=== PATIENT | female | born 1960 | race Caucasian/White ===

== ENCOUNTER 2016-10-30 10:35 | Observation (INO) | payer BC, OTHER ==
[2016-10-30] MEDS ORDERED: ASPIRIN 81 MG TABLET, CHEWABLE PO ONE (10:44)
--- NOTE | 2016-10-30 10:44 | ER Document Report ---
ED Medical Screen (RME) - General Stated Complaint: CHEST PAIN Mode of Arrival: Ambulatory Information source: Patient Notes: pt c/o cp that woke her up around 2 am, pain has been off/on since. Pt reports pain radiates thru to her back. Pt denies n/v. Does report cough for past day with sob. - Related Data Allergies/Adverse Reactions: No Known Allergies Allergy (Verified 10/30/16 10:43) Past Medical History - Past Medical History Cardiac Medical History: Denies: Hx Coronary Artery Disease, Hx Heart Attack, Hx Hypertension Pulmonary Medical History: Denies: Hx Asthma, Hx Bronchitis, Hx COPD, Hx Pneumonia Neurological Medical History: Denies: Hx Cerebrovascular Accident, Hx Seizures Musculoskeltal Medical History: Denies Hx Arthritis Past Surgical History: Denies: Hx Hysterectomy - Immunizations Hx Diphtheria, Pertussis, Tetanus Vaccination: Yes Physical Exam - Cardiovascular Rhythm: Regular Heart sounds: S1 appreciated, S2 appreciated Murmur: No
--- NOTE | 2016-10-30 11:12 | ER Document Report ---
ED Cardiac - General Chief Complaint: Chest Pain Stated Complaint: CHEST PAIN Time seen by provider: 11:07 Mode of Arrival: Ambulatory Information source: Patient Notes: 56-year-old female presents to ED for chest pain that woke her up around 2 AM. She states this pain is been off and on since then. She states the last couple days she has had pain in her medical record neck shoulders and the pain went down to her lower bottom of her teeth yesterday and it has radiated down to her chest through to her back. She denies any history of high blood pressure cholesterol or coronary artery disease. She states that her father has had a stroke and her grandfather has had heart attacks. TRAVEL OUTSIDE OF THE [place] IN LAST 30 DAYS: No - HPI Patient complains to provider of: Chest pain, Shortness of breath Was the onset of pain: Sudden Is the pain a: New problem Chest pain location: Substernal - Radiates to back Quality of pain: Sharp Chest pain radiation location: Back Severity now: Mild Pain level currently: 1 Cardiac risk factors: + Family history. denies: Diabetes, Hypertension, Smoker , Hx CHF, Hx VA Positive cardiac history: No Associated symptoms: Back pain, Jaw pain, Neck pain, Other - Left shoulder pain Exacerbated by: Denies Relieved by: Nothing Similar symptoms previously: No Recently seen / treated by doctor: No - Related Data Allergies/Adverse Reactions: No Known Allergies Allergy (Verified 10/30/16 10:43) Home Medications: Current Home Medications Fluticasone Propionate [Flonase Nasal [place] 50 Mcg/[place] 16 gm] 2 sprays NASL Q12 10/30/16 [History] Past Medical History - General Information source: Patient - Social History Smoking Status: Never Smoker Cigarette use (# per day): No Chew tobacco use (# tins/day): No Smoking Education Provided: No Frequency of alcohol use: None Drug Abuse: None Occupation: controller Lives with: Family - Adult disabled daughter Family History: Arthritis, CAD, COPD, CVA, DM, Hyperlipidemia, Hypertension, Malignancy, Thyroid Disfunction Patient has suicidal ideation: No Patient has homicidal ideation: No - Past Medical History Cardiac Medical History: Reports: None Denies: Hx Coronary Artery Disease, Hx Hypercholesterolemia, Hx Hypertension Pulmonary Medical History: Reports: None Denies: Hx Asthma EENT Medical History: Denies: None, Eyes, Ears, Nose, Throat, Other Endocrine Medical History: Reports: None. Denies: Hx Diabetes Mellitus Type 1, Hx Diabetes Mellitus Type 2 Renal/ Medical History: Reports: None Malignancy Medical History: Reports: None GI Medical History: Reports: None Musculoskeltal Medical History: Reports None, Denies Hx Arthritis Skin Medical History: Reports None Psychiatric Medical History: Reports: None Traumatic Medical History: Reports: None Infectious Medical History: Reports: None Surgical Hx: Negative Past Surgical History: Reports: None - Immunizations Immunizations up to date: Yes Hx Diphtheria, Pertussis, Tetanus Vaccination: Yes Review of Systems - Review of Systems Constitutional: No symptoms reported EENT: Other - Jaw pain Cardiovascular: Chest pain Respiratory: No symptoms reported Gastrointestinal: No symptoms reported. denies: Nausea, Vomiting Genitourinary: No symptoms reported Female Genitourinary: No symptoms reported Musculoskeletal: Back pain, Neck pain Skin: No symptoms reported Hematologic/Lymphatic: No symptoms reported Neurological/Psychological: No symptoms reported -: Yes All other systems reviewed and negative Physical Exam - Vital signs Vitals: Temp Pulse Resp BP Pulse Ox 97.7 F 71 16 129/74 H 100 10/30/16 10:43 10/30/16 10:43 10/30/16 10:43 10/30/16 10:43 10/30/16 10:43 Interpretation: Normal - General General appearance: Appears well, Alert - HEENT Head: Normocephalic, Atraumatic Eyes: Normal Pupils: PERRL Sinus: Normal Nasal: Normal Mouth/Lips: Normal Mucous membranes: Normal Pharynx: Normal Neck: Normal - Respiratory Respiratory status: No respiratory distress Chest status: Nontender Breath sounds: Normal Chest palpation: Normal - Cardiovascular Rhythm: Regular Heart sounds: Normal auscultation Murmur: No Normal capillary refill: Yes - Abdominal Inspection: Normal Distension: No distension Bowel sounds: Normal Tenderness: Nontender Organomegaly: No organomegaly - Back Back: Normal, Tender, Vertebra tenderness - Neck. No: Nontender, Deformity/step -off, CVA tenderness, Scars, Scoliosis, Wounds, Other - Extremities General upper extremity: Normal inspection, Nontender, Normal color, Normal ROM , Normal temperature General lower extremity: Normal inspection, Nontender, Normal color, Normal ROM , Normal temperature, Normal weight bearing. No: Sal's sign - Neurological Neuro grossly intact: Yes Cognition: Normal Orientation: AAOx4 Juan Coma Scale Eye Opening: Spontaneous Juan Coma Scale Verbal: Oriented Juan Coma Scale Motor: Obeys Commands Juan Coma Scale Total: 15 Speech: Normal Motor strength normal: LUE, RUE, LLE, RLE Sensory: Normal - Psychological Associated symptoms: Normal affect, Normal mood - Skin Skin Temperature: Warm Skin Moisture: Dry Skin Color: Normal Course - Re-evaluation Re-evalutation: 10/30/16 15:[address] Snow for admission she stated the nurse practitioner Mary Cordero would admit the patient. Patient admitted to telemetry observation for chest pain rule out. - Vital Signs Vital signs: Temp Pulse Resp BP Pulse Ox 97.7 F 71 13 96/61 L 96 10/30/16 10:43 10/30/16 10:43 10/30/16 15:00 10/30/16 13:28 10/30/16 15:00 - Laboratory Result Diagrams: 10/30/16 11:15 10/30/16 11:15 Laboratory results interpreted by me: 10/30/16 15:40 Urine Ketones TRACE H Ur Leukocyte Esterase TRACE H Urine Ascorbic Acid 40 H - Diagnostic Test Radiology reviewed: Image reviewed, Reports reviewed - EKG Interpretation by Mn EKG shows normal: Sinus rhythm, [place], Intervals, QRS Complexes, ST-T Waves - Consults Gil [employer] Time consulted: 15:40 Reason for consultation: 10/30/16 15:58 Chest pain patient will be admitted to a telemetry observation for chest pain Consulted provider: will come to ER Discharge - Discharge Clinical Impression: Chest pain Qualifiers: Chest pain type: unspecified Qualified Code(s): R07.9 - Chest pain, unspecified Disposition: ADMITTED OBSERVATION Admitting Provider: Hospitalist - Gil Unit Admitted: Telemetry
[2016-10-30 11:40] LABS: ABSOLUTE LYMPHOCYTES (AUTO) 1.4 10^3/uL (0.5-4.7); ABSOLUTE MONOCYTES (AUTO) 0.6 10^3/uL (0.1-1.4); ABSOLUTE NEUT (AUTO) 4.6 10^3/uL (1.7-8.2); BASOPHILS % (AUTO) 0.4 % (0-2); EOSINOPHILS % (AUTO) 0.6 % (0-6); HEMATOCRIT 40.8 % (36.0-47.0); HEMOGLOBIN 13.6 g/dL (12.0-15.5); LYMPHOCYTES % (AUTO) 21.3 % (13-45); MEAN CORPUSCULAR HEMOGLOBIN 29.6 pg (27.0-33.4); MEAN CORPUSCULAR HGB CONC 33.4 g/dL (32.0-36.0); MEAN CORPUSCULAR VOLUME 89 fl (80-97); MONOCYTES % (AUTO) 8.8 % (3-13); RED CELL DISTRIBUTION WIDTH 12.9 % (11.5-14.0); SEGMENTED NEUTROPHILS % (AUTO) 68.9 % (42-78); WHITE BLOOD COUNT 6.7 10^3/uL (4.0-10.5)
[2016-10-30 11:50] LABS: ALANINE AMINOTRANSFERASE 39 U/L (9-52); ALBUMIN 4.4 g/dL (3.5-5.0); ALKALINE PHOSPHATASE 70 U/L (38-126); ANION GAP 9 (5-19); ASPARTATE AMINO TRANSFERASE 22 U/L (14-36); BILIRUBIN,TOTAL 0.8 mg/dL (0.2-1.3); BLOOD UREA NITROGEN 15 mg/dL (7-20); CALCIUM 9.6 mg/dL (8.4-10.2); CARBON DIOXIDE 29 mmol/L (22-30); CHLORIDE 106 mmol/L (98-107); CREATINE KINASE 60 U/L (30-135); CREATININE RESULT 0.67 mg/dL (0.52-1.25); GLUCOSE 86 mg/dL (75-110); LIPASE 79.3 U/L (23-300); POTASSIUM 4.5 mmol/L (3.6-5.0); TOTAL PROTEIN 6.7 g/dL (6.3-8.2)
[2016-10-30 12:01] LABS: CREATINE KINASE MB 1.51 ng/mL (<4.55)
[2016-10-30 12:02] LABS: TROPONIN I < 0.012 ng/mL
[2016-10-30] MEDS ORDERED: NITROGLYCERIN 0.4 MG/TAB 25 TAB/BOTTLE SL PRN (15:45)
[2016-10-30 15:55] LABS: APPEARANCE,URINE SLIGHTLY-CLOUDY; BILIRUBIN,URINE NEGATIVE (NEGATIVE); GLUCOSE, URINE NEGATIVE (NEGATIVE); KETONES,URINE TRACE mg/dL (NEGATIVE); LEUKOCYTE ESTERASE,URINE TRACE (NEGATIVE); NITRITE,URINE NEGATIVE (NEGATIVE); PROTEIN,URINE NEGATIVE (NEGATIVE); URINE SPECIFIC GRAVITY 1.023; UROBILINOGEN,URINE NEGATIVE mg/dL (<2.0)
[2016-10-30] MEDS ORDERED: ZOLPIDEM TARTRATE 5 MG TABLET PO PRN (16:23)
--- NOTE | 2016-10-30 16:30 | PDOC H&P ---
History of Present Illness Admission Date/PCP: 10/30/16 15:49 Patient complains of: Epigastric pain History of Present Illness: CHANDU VIGIL is a 56 year old female who presents to [facility] ED this afternoon with complaint of epigastric to midsternal discomfort that began around 2 am last night while she was sleeping. The pain awakened her. She has had similar episodes of pain but none as severe. She states the pain improved when she got up out of bed, but then reoccurred when she laid down again. She has no cardiac history or history of gastroesophageal reflux. She denies any associated symptoms such as diaphoresis, nausea, shortness of breath or palpitations. She has had 2 recent syncopal episodes one where she actually lost consciousness over the last 2 months. She had a headache prior to both occurrences. She thought that it may be because her blood sugar was low. She normally has low blood pressure. She is a nonsmoker, her cholesterol is reported as normal, and she is fairly active. She has had none of these symptoms while she is active. She does have family history of cardiovascular disease in her father who passed at age 76 from complications of a stroke. She does admit to being under a great deal of stress with her job as well. Past Medical History Cardiac Medical History: Reports: None Denies: Coronary Artery Disease, Myocardial Infarction, Hyperlipidema, Hypertension Pulmonary Medical History: Reports: None Denies: Asthma, Bronchitis, Chronic Obstructive Pulmonary Disease (COPD), Pneumonia EENT Medical History: Denies: None, Eyes, Ears, Nose, Throat Neurological Medical History: Reports: Migraine - syncopal episodes x 2 Denies: Seizures Endocrine Medical History: Reports: None Denies: Diabetes Mellitus Type 1, Diabetes Mellitus Type 2 Renal/ Medical History: Reports: None Malignancy Medical History: Reports: None GI Medical History: Reports: None Musculoskeltal Medical History: Reports: None Denies: Arthritis Skin Medical History: Reports: None Psychiatric Medical History: Reports: None Traumatic Medical History: Reports: None Hematology: Denies: Anemia Infectious Medical History: Reports: None Past Surgical History Past Surgical History: Reports: None Denies: Hysterectomy Social History Information Source: Patient Lives with: Family - Adult disabled daughter Smoking Status: Never Smoker Frequency of Alcohol Use: Occasional Hx Recreational Drug Use: No Hx Prescription Drug Abuse: No - Advance Directive Resuscitation Status: Full Code Surrogate healthcare decision maker:: She states her daughter is her closest relative to make decisions for her should she become incapacitated Family History Family History: Arthritis, CAD, COPD, CVA, DM, Hyperlipidemia, Hypertension, Malignancy, Thyroid Disfunction Parental Family History Reviewed: Yes Children Family History Reviewed: Yes Sibling(s) Family History Reviewed.: Yes Medication/Allergy Home Medications: Cetirizine HCl [Zyrtec 10 mg Tablet] 10 mg PO DAILY 10/30/16 Fluticasone Propionate [Flonase Nasal [place] 50 Mcg/[place] 16 gm] 2 sprays NASL Q12 10/30/16 Allergies/Adverse Reactions: No Known Allergies Allergy (Verified 10/30/16 10:43) Review of Systems Constitutional: ABSENT: chills, fever(s), headache(s), weight gain, weight loss Eyes: ABSENT: visual disturbances Ears: ABSENT: hearing changes Cardiovascular: PRESENT: chest pain Respiratory: ABSENT: cough, hemoptysis Gastrointestinal: PRESENT: heartburn Genitourinary: ABSENT: dysuria, hematuria Musculoskeletal: ABSENT: joint swelling Neurological: ABSENT: abnormal gait, abnormal speech, confusion, dizziness, focal weakness, syncope Psychiatric: ABSENT: anxiety, depression, homidical ideation, suicidal ideation Endocrine: ABSENT: cold intolerance, heat intolerance, polydipsia, polyuria Hematologic/Lymphatic: ABSENT: easy bleeding, easy bruising Physical Exam Vital Signs: Temp Pulse Resp BP Pulse Ox 97.7 F 71 13 96/61 L 96 10/30/16 10:43 10/30/16 10:43 10/30/16 15:00 10/30/16 13:28 10/30/16 15:00 General appearance: PRESENT: no acute distress, well-developed, well-nourished Head exam: PRESENT: atraumatic, normocephalic Eye exam: PRESENT: conjunctiva pink, EOMI, PERRLA. ABSENT: scleral icterus Ear exam: PRESENT: normal external ear exam Mouth exam: PRESENT: moist, tongue midline Neck exam: ABSENT: carotid bruit, JVD, lymphadenopathy, thyromegaly Respiratory exam: PRESENT: clear to auscultation ashley. ABSENT: rales, rhonchi, wheezes Cardiovascular exam: PRESENT: RRR. ABSENT: diastolic murmur, rubs, systolic murmur Pulses: PRESENT: normal dorsalis pedis pul Vascular exam: PRESENT: normal capillary refill GI/Abdominal exam: PRESENT: normal bowel sounds, soft. ABSENT: distended, guarding, mass, organolmegaly, rebound, tenderness Rectal exam: PRESENT: deferred Extremities exam: PRESENT: full ROM. ABSENT: calf tenderness, clubbing, pedal edema Neurological exam: PRESENT: alert, awake, oriented to person, oriented to place , oriented to time, oriented to situation, CN II-XII grossly intact. ABSENT: motor sensory deficit Psychiatric exam: PRESENT: appropriate affect, normal mood. ABSENT: homicidal ideation, suicidal ideation Skin exam: PRESENT: dry, intact, warm. ABSENT: cyanosis, rash Results Impressions: Chest X-Ray 10/30/16 10:44 IMPRESSION: NO SIGNIFICANT RADIOGRAPHIC FINDING IN THE CHEST. Assessment & Plan - Diagnosis (1) Chest pain Qualifiers: Chest pain type: unspecified Qualified Code(s): R07.9 - Chest pain, unspecified Is this a current diagnosis for this admission?: YesPlan: Atypical for cardiac, most likely GERD. Will admit to tele OBS, to rule out acs , arrythmias with recent syncope (2) Head ache Qualifiers: Headache type: cluster Headache chronicity pattern: episodic headache Is this a current diagnosis for this admission?: YesPlan: Patient with history of migraines but has been migraine free for years, recently having right sided headaches with presyncope and syncopal epidsodes. - Time Time Spent: 50 to 70 Minutes Critical Time spent with patient: 25-34 minutes Medications reviewed and adjusted accordingly: Yes Anticipated discharge: Home
[2016-10-30] MEDS: LANSOPRAZOLE 30 MG TAB.RAP.DR PO SCH (16:50)
[2016-10-30] MEDS: FLUTICASONE NASAL SPRAY 50 MCG/SPRY 120 SPRAY/16 GM NASL SCH (21:23)
[2016-10-30] MEDS: IBUPROFEN 600 MG TABLET PO PRN (21:24)
[2016-10-30] MEDS ORDERED: ATORVASTATIN CALCIUM 20 MG TABLET PO SCH (22:00)
[2016-10-31] MEDS: IBUPROFEN 600 MG TABLET PO PRN (04:42)
[2016-10-31 04:44] VITALS: BP 99/51
[2016-10-31 05:35] LABS: CHOLESTEROL 152.38 mg/dL (0-200); Direct HDL 41 mg/dL (>40); TRIGLYCERIDES 74 mg/dL (<150)
[2016-10-31 05:47] LABS: DIRECT LDL 89 mg/dL (<100)
[2016-10-31] MEDS: LANSOPRAZOLE 30 MG TAB.RAP.DR PO SCH (05:53)
--- NOTE | 2016-10-31 08:21 | EKG REPORT ---
SEVERITY:- NORMAL ECG - SINUS RHYTHM : Confirmed by: Janine Sifuentes 31-Oct-2016 08:21:09
[2016-10-31] MEDS ORDERED: ASPIRIN 81 MG TABLET, ENT COATED PO SCH (10:00)
[2016-10-31] MEDS: FLUTICASONE NASAL SPRAY 50 MCG/SPRY 120 SPRAY/16 GM NASL SCH (11:06)
--- NOTE | 2016-11-09 07:48 | PDOC DISCHARGE SUMMARY ---
General - Admit/Disc Date/PCP Admission Date/Primary Care Provider: 10/30/16 15:45 Discharge Date: 10/31/16 - Discharge Diagnosis (1) Chest pain Is this a current diagnosis for this admission?: YesSummary: Ruled out for acute coronary syndrome (2) Head ache Is this a current diagnosis for this admission?: YesSummary: Motrin 600 mg every 8 hrs as needed for pain - Additional Information Resuscitation Status: Full Code Discharge Diet: Regular Discharge Activity: Activity As Tolerated Home Medications: Cetirizine HCl [Zyrtec 10 mg Tablet] 10 mg PO DAILY 10/30/16 Fluticasone Propionate [Flonase Nasal [place] 50 Mcg/[place] 16 gm] 2 sprays NASL Q12 10/30/16 Ibuprofen [Motrin 600 mg Tablet] 600 mg PO Q6HP PRN #30 tablet 10/31/16 Omeprazole 20 mg PO DAILY #30 capsule. 10/31/16 History of Present Illness History of Present Illness: CHANDU VIGIL is a 56 year old female who presents to [facility] ED this afternoon with complaint of epigastric to midsternal discomfort that began around 2 am last night while she was sleeping. The pain awakened her. She has had similar episodes of pain but none as severe. She states the pain improved when she got up out of bed, but then reoccurred when she laid down again. She has no cardiac history or history of gastroesophageal reflux. She denies any associated symptoms such as diaphoresis, nausea, shortness of breath or palpitations. She has had 2 recent syncopal episodes one where she actually lost consciousness over the last 2 months. She had a headache prior to both occurrences. She thought that it may be because her blood sugar was low. She normally has low blood pressure. She is a nonsmoker, her cholesterol is reported as normal, and she is fairly active. She has had none of these symptoms while she is active. She does have family history of cardiovascular disease in her father who passed at age 76 from complications of a stroke. She does admit to being under a great deal of stress with her job as well. Hospital Course Hospital Course: Patient was admitted to telemetry on observation. She had serial troponins every 6 hrs which were all negative. Pain is more consistent with symptoms of GERD. She was started on PPI therapy which improved her pain. She had 2 episodes of right sided headaches followed by a syncopal episode. CT scan of the head shows no masses or acute infarcts. She has been under a great deal of work stress and has a history of migraine headaches. She will follow up with her PCP for further workup of headaches post discharge. Physical Exam Vital Signs: Temp Pulse Resp BP Pulse Ox 97.8 F 58 L 16 99/51 L 100 10/31/16 11:24 10/31/16 11:24 10/31/16 11:24 10/31/16 11:24 10/31/16 11:24 Intake & Output 10/30/16 10/31/16 11/01/16 06:59 06:59 06:59 Intake Total 335 Balance 335 General appearance: PRESENT: no acute distress, thin, well-developed, well- nourished Head exam: PRESENT: atraumatic, normocephalic Eye exam: PRESENT: conjunctiva pink, EOMI, PERRLA. ABSENT: scleral icterus Ear exam: PRESENT: normal external ear exam Mouth exam: PRESENT: moist, tongue midline Neck exam: ABSENT: carotid bruit, JVD, lymphadenopathy, thyromegaly Respiratory exam: PRESENT: clear to auscultation ashley. ABSENT: rales, rhonchi, wheezes Cardiovascular exam: PRESENT: RRR. ABSENT: diastolic murmur, rubs, systolic murmur Pulses: PRESENT: normal dorsalis pedis pul Vascular exam: PRESENT: normal capillary refill GI/Abdominal exam: PRESENT: normal bowel sounds, soft. ABSENT: distended, guarding, mass, organolmegaly, rebound, tenderness Rectal exam: PRESENT: deferred Extremities exam: PRESENT: full ROM. ABSENT: calf tenderness, clubbing, pedal edema Neurological exam: PRESENT: alert, awake, oriented to person, oriented to place , oriented to time, oriented to situation, CN II-XII grossly intact. ABSENT: motor sensory deficit Psychiatric exam: PRESENT: appropriate affect, normal mood. ABSENT: homicidal ideation, suicidal ideation Skin exam: PRESENT: dry, intact, warm. ABSENT: cyanosis, rash Results Laboratory Results: 10/31/16 03:47 Triglycerides 74 Cholesterol 152.38 LDL Cholesterol Direct 89 VLDL Cholesterol 15.0 HDL Cholesterol 41 10/30/16 10/31/16 10/31/16 21:11 03:47 09:55 Troponin I < 0.012 < 0.012 < 0.012 Impressions: Chest X-Ray 10/30/16 10:44 IMPRESSION: NO SIGNIFICANT RADIOGRAPHIC FINDING IN THE CHEST. Head CT 10/31/16 00:00 IMPRESSION: NORMAL BRAIN CT WITHOUT CONTRAST. Qualifiers PATEINT BEING DISCHARGED WITH ANY OF THE FOLLOWING DIAGNOSIS?: No Plan Discharge Plan: Home with family Time Spent: Less than 30 Minutes
== END 2016-10-31 13:01 | disposition home or self-care (01) ==
LOC: ER 10:35 → EH 15:45 → UNDOADMOB 15:49 → 4N 19:42
PROVIDERS: ADMIT Emergency Medicine; ATTEND Emergency Medicine
DX: R07.9 Chest pain, unspecified (principal); R51 Headache; Z82.49 Family history of ischemic heart disease and other diseases of the circulatory system
CPT/HCPCS: 93005; 99285; 36415; 87086; 82553; 82550; 83690; 85025; 87088; 80053; 81001; 84484 ×2; 80061; 71020; 70450; 93010; G0378 ×3; J3490 ×2

== ENCOUNTER → 2017-02-25 | Outpatient (CLI) | payer OTHER | LOC: WI 08:12 | PROVIDERS: ATTEND Internal Medicine Gastroenterology | DX: R10.13 Epigastric pain (principal) | CPT/HCPCS: 76705 ==

== ENCOUNTER → 2020-08-21 | Outpatient (CLI) | payer OTHER ==
--- NOTE | 2020-08-21 13:07 | RADIOLOGY REPORT (SQ) ---
EXAM DESCRIPTION: NM GASTRIC EMPTYING STUDY IMAGES COMPLETED DATE/TIME: 08/21/2020 12:44 pm REASON FOR STUDY: R14.0 ABDOMINAL DISTENSION (GASEOUS) R14.0 ABDOMINAL DISTENSION (GASEOUS) COMPARISON: None. RADIONUCLIDE AND DOSE: 2 millicuries Tc-99m Sulfur Colloid. Egg salad sandwich The route of agent administration: Oral. TECHNIQUE: 1 minute serial static imaging performed at time of meal, 1 hour, 2 hours, 3 hours, and 4 hours as needed. Once stomach reaches 90% emptying, the test is complete. Image intensity values pl otted with respect to time with linear regression algorithm. LIMITATIONS: None. FINDINGS: Patient was observed for 3 hours. Immediate post meal serves as baseline. Gastric emptying at 30 minutes was 29%. Gastric emptying at 60 minutes was 58.5% Gastric emptying at 90 minutes was 77.1%. Gastric emptying at 120 minutes was 87.7%. Gastric emptying at 180 minutes was 99% Normal values: 60 minutes: 30-90% retained. If less than 30%, abnormally rapid emptying. If greater than 90%, delaye d gastric emptying. 120 minutes: <60% retained. If greater than 60%, delayed gastric emptying. 240 minutes: <10% retained. If greater than 10%, delayed gastric emptying. IMPRESSION: NORMAL GASTRIC EMPTYING. TECHNICAL DOCUMENTATION: JOB ID: [id number] [employer]- All Rights Reserved rev Reading location - IP/workstation name: [email or web address]
== END ==
LOC: RAD 07:48
PROVIDERS: ATTEND Internal Medicine Gastroenterology
DX: R14.0 Abdominal distension (gaseous) (principal)
CPT/HCPCS: 78264; A9541